=== PATIENT | female | born 1945 | race Caucasian/White ===

== ENCOUNTER 2018-02-23 07:01 | Day surgery (SDC) | payer OTHER ==
[~2018-02-23] VITALS: Ht 149.9 cm; Wt 76.0 kg
[~2018-02-23 07:01] MED LIST: BACL10 PO; LISI20; LOVA40
[2018-02-23] MEDS ORDERED: FISH OIL 1,0001 EAC2 (07:40)
[2018-02-23] MEDS ORDERED: Multivitamin1 EAC1 (07:41)
== END 2018-02-23 09:32 | disposition home or self-care (01) ==
LOC: ORSCSDS 07:01
PROVIDERS: Internal Medicine Gastroenterology
PROC: 0DBL8ZX Excision of Transverse Colon, Via Natural or Artificial Opening Endoscopic, Diagnostic (ICD-10-PCS; principal; 2018-02-23 08:30)
PROC: 0DBN8ZX Excision of Sigmoid Colon, Via Natural or Artificial Opening Endoscopic, Diagnostic (ICD-10-PCS; principal; 2018-02-23 08:30)
DX: Z12.11 Encounter for screening for malignant neoplasm of colon (principal); D12.3 Benign neoplasm of transverse colon; K63.5 Polyp of colon; K57.30 Diverticulosis of large intestine without perforation or abscess without bleeding; K64.8 Other hemorrhoids; E78.5 Hyperlipidemia, unspecified; J43.9 Emphysema, unspecified; Z87.891 Personal history of nicotine dependence; E66.9 Obesity, unspecified; Z68.31 Body mass index [BMI] 31.0-31.9, adult; Z79.82 Long term (current) use of aspirin; Z79.899 Other long term (current) drug therapy
CPT/HCPCS: 88305; J0330; J1980; J2405; J7120

== ENCOUNTER → 2021-01-17 | Outpatient (CLI) | payer OTHER ==
[~2021-01-17] MED LIST changes: +FISH OIL 1,0001 EAC2; +HYDR1TAB94 PO; +Multivitamin1 EAC1
== END | disposition home or self-care (01) ==
LOC: LAB SHORT 10:10
DX: M54.5 Low back pain (principal)
CPT/HCPCS: 87077; 87086; 87186

== ENCOUNTER 2021-01-21 14:20 | Emergency (ER) | payer OTHER ==
[~2021-01-21] VITALS: Ht 152.4 cm; Wt 72.6 kg
[~2021-01-21 14:20] MED LIST changes: -HYDR1TAB94 PO
[2021-01-21 14:56] LABS: BASOPHILS ABSOLUTE AUTO 0.07 K/mm3 (0.00-0.23); BASOPHILS PERCENT AUTO 1 % (0-2); EOSINOPHILS ABSOLUTE AUTO 0.32 K/mm3 (0.00-0.68); EOSINOPHILS PERCENT AUTO 4 % (0-6); Hematocrit 40.5 % (33.0-51.0); Hemoglobin 13.2 g/dL (11.5-16.0); IMMATURE GRAN ABSOLUTE AUTO 0.02 K/mm3 (0.00-0.10); IMMATURE GRAN PERCENT AUTO 0 % (0-1); LYMPHOCYTES ABSOLUTE AUTO 1.45 K/mm3 (0.84-5.20); LYMPHOCYTES PERCENT AUTO 19 % (21-46); MONOCYTES ABSOLUTE AUTO 0.64 K/mm3 (0.16-1.47); MONOCYTES PERCENT AUTO 9 % (4-13); Mean Corpuscular HGB 30.3 pg (26.0-34.0); Mean Corpuscular HGB Conc 32.6 g/dL (31.5-36.5); Mean Corpuscular Volume 93 fL (80-100); Mean Platelet Volume 11.9 fL (9.1-12.4); NEUTROPHILS ABSOLUTE AUTO 5.02 K/mm3 (1.96-9.15); NEUTROPHILS PERCENT AUTO 67 % (41-73); Platelet Count 230 K/mm3 (150-400); RDW Coefficient Variation 12.8 % (11.7-14.2); RDW Standard Deviation 43.8 fL (35.1-46.3); Red Blood Cell Count 4.36 M/mm3 (3.80-5.20); White Blood Cell Count 7.52 K/mm3 (4.00-11.30)
[2021-01-21 14:59] LABS: Source, Urine Clean Catch
[2021-01-21 15:10] LABS: Albumin, Blood 3.8 g/dL (3.4-5.0); Albumin/Globulin Ratio 1.1 (0.8-1.8); Bilirubin, Total 0.2 mg/dL (0.1-1.0); Bun/Creatinine Ratio 12.9 (12.0-20.0); Creatinine, Blood 1.16 mg/dL (0.40-1.00); Globulin, Blood 3.6 g/dL (2.2-4.0); Potassium, Blood 4.2 mmol/L (3.5-5.5); Total Protein, Blood 7.4 g/dL (6.4-8.2)
[2021-01-21 15:16] LABS: Appearance, Urine Clear (Clear); Bilirubin, Urine Neg (Neg); Blood, Urine 1+ (Neg); Color, Urine Yellow (P-Yellow); Glucose Qualitative, Urine Neg (Neg); Ketones, Urine Neg (Neg); Leukocyte Esterase, Urine 1+ (Neg); Nitrite, Urine Neg (Neg); Protein, Urine Neg (Neg); Urobilinogen, Urine NORM (Normal)
[2021-01-21 15:38] LABS: Bacteria Few /hpf; Squamous Epithelial Cells Few /hpf (Few)
[2021-01-21] MEDS ORDERED: HYDR1TAB94 PO (16:15)
== END 2021-01-21 16:30 | disposition home or self-care (01) ==
LOC: ER 14:20
PROVIDERS: Physician Assistant
DX: R10.9 Unspecified abdominal pain (principal); Z88.8 Allergy status to other drugs, medicaments and biological substances; Z79.899 Other long term (current) drug therapy; Z87.891 Personal history of nicotine dependence
CPT/HCPCS: 36415; 74176; 80053; 81001; 83690; 85025; 87086; 99284-25

== ENCOUNTER → 2021-01-22 | Outpatient (CLI) | payer OTHER ==
[~2021-01-22] MED LIST changes: +HYDR1TAB94 PO
[2021-01-22 12:20] LABS: BASOPHILS ABSOLUTE AUTO 0.05 K/mm3 (0.00-0.23); BASOPHILS PERCENT AUTO 0 % (0-2); EOSINOPHILS ABSOLUTE AUTO 0.09 K/mm3 (0.00-0.68); EOSINOPHILS PERCENT AUTO 1 % (0-6); Hematocrit 41.6 % (33.0-51.0); Hemoglobin 13.6 g/dL (11.5-16.0); IMMATURE GRAN ABSOLUTE AUTO 0.06 K/mm3 (0.00-0.10); IMMATURE GRAN PERCENT AUTO 0 % (0-1); LYMPHOCYTES ABSOLUTE AUTO 1.21 K/mm3 (0.84-5.20); LYMPHOCYTES PERCENT AUTO 8 % (21-46); MONOCYTES ABSOLUTE AUTO 0.74 K/mm3 (0.16-1.47); MONOCYTES PERCENT AUTO 5 % (4-13); Mean Corpuscular HGB 30.5 pg (26.0-34.0); Mean Corpuscular HGB Conc 32.7 g/dL (31.5-36.5); Mean Corpuscular Volume 93 fL (80-100); Mean Platelet Volume 11.9 fL (9.1-12.4); NEUTROPHILS ABSOLUTE AUTO 12.37 K/mm3 (1.96-9.15); NEUTROPHILS PERCENT AUTO 85 % (41-73); Platelet Count 243 K/mm3 (150-400); RDW Coefficient Variation 13.1 % (11.7-14.2); RDW Standard Deviation 44.4 fL (35.1-46.3); Red Blood Cell Count 4.46 M/mm3 (3.80-5.20); White Blood Cell Count 14.52 K/mm3 (4.00-11.30)
[2021-01-22 12:33] LABS: Albumin, Blood 3.8 g/dL (3.4-5.0); Bilirubin, Total 0.4 mg/dL (0.1-1.0); Bun/Creatinine Ratio 12.9 (12.0-20.0); Calcium, Blood 9.8 mg/dL (8.5-10.1); Creatinine, Blood 1.47 mg/dL (0.40-1.00); Globulin, Blood 3.7 g/dL (2.2-4.0); Potassium, Blood 4.2 mmol/L (3.5-5.5); Total Protein, Blood 7.5 g/dL (6.4-8.2)
== END | disposition home or self-care (01) ==
LOC: LAB SHORT 12:13 → LAB 12:13
PROVIDERS: Physician Assistant
DX: R10.84 Generalized abdominal pain (principal)
CPT/HCPCS: 80053; 83690; 85025

== ENCOUNTER 2022-01-08 17:15 | Emergency (ER) | payer OTHER ==
[~2022-01-08] VITALS: Ht 149.9 cm; Wt 68.0 kg
[~2022-01-08 17:15] MED LIST changes: -FISH OIL 1,0001 EAC2; +FISH OIL 1,2001 EAC7 PO; -LISI20; +LISI20 PO; +MULVITA PO; -Multivitamin1 EAC1
[2022-01-08 17:52] LABS: BASOPHILS ABSOLUTE AUTO 0.07 K/mm3 (0.00-0.23); BASOPHILS PERCENT AUTO 1 % (0-2); EOSINOPHILS ABSOLUTE AUTO 0.27 K/mm3 (0.00-0.68); EOSINOPHILS PERCENT AUTO 4 % (0-6); Hematocrit 43.7 % (33.0-51.0); Hemoglobin 13.7 g/dL (11.5-16.0); IMMATURE GRAN ABSOLUTE AUTO 0.01 K/mm3 (0.00-0.10); IMMATURE GRAN PERCENT AUTO 0 % (0-1); LYMPHOCYTES ABSOLUTE AUTO 1.83 K/mm3 (0.84-5.20); LYMPHOCYTES PERCENT AUTO 28 % (21-46); MONOCYTES ABSOLUTE AUTO 0.41 K/mm3 (0.16-1.47); MONOCYTES PERCENT AUTO 6 % (4-13); Mean Corpuscular HGB 29.7 pg (26.0-34.0); Mean Corpuscular HGB Conc 31.4 g/dL (31.5-36.5); Mean Corpuscular Volume 95 fL (80-100); Mean Platelet Volume 11.7 fL (9.1-12.4); NEUTROPHILS ABSOLUTE AUTO 4.03 K/mm3 (1.96-9.15); NEUTROPHILS PERCENT AUTO 61 % (41-73); Platelet Count 189 K/mm3 (150-400); RDW Coefficient Variation 13.1 % (11.7-14.2); RDW Standard Deviation 44.9 fL (35.1-46.3); Red Blood Cell Count 4.62 M/mm3 (3.80-5.20); White Blood Cell Count 6.62 K/mm3 (4.00-11.30)
[2022-01-08 18:29] LABS: Alanine Aminotransfer (ALT/SGP 23 U/L (12-78); Albumin, Blood 3.7 g/dL (3.4-5.0); Albumin/Globulin Ratio 1.1 (0.8-1.8); Alk Phos 107 U/L (50-136); Anion Gap 1 mmol/L (6-16); Aspartate Aminotrans (AST/SGOT 17 U/L (12-37); Bilirubin, Total 0.2 mg/dL (0.1-1.0); Blood Urea Nitrogen 13 mg/dL (8-24); Bun/Creatinine Ratio 18.5 (12.0-20.0); CO2, Blood 31 mmol/L (21-32); Calcium, Blood 9.3 mg/dL (8.5-10.1); Chloride, Blood 110 mmol/L (98-108); Globulin, Blood 3.4 g/dL (2.2-4.0); Glomerular Filtration Rate >60 (60-); Glucose, Blood 123 mg/dL (70-99); Potassium, Blood 3.9 mmol/L (3.5-5.5); Sodium, Blood 142 mmol/L (136-145); Total Protein, Blood 7.1 g/dL (6.4-8.2)
[2022-01-08] MEDS ORDERED: Vitamin D1000 UNI1 PO (19:55)
[2022-01-08] MEDS ORDERED: B-12500 MC2 PO (19:55)
[2022-01-08] MEDS ORDERED: Aspir 8181 MG PO (19:56)
[2022-01-08] MEDS ORDERED: AMOX-CLAV 875-1 EAC2 PO (21:26)
== END 2022-01-08 21:43 | disposition home or self-care (01) ==
LOC: ER 17:15
PROVIDERS: Physician Assistant
DX: K11.21 Acute sialoadenitis (principal); R91.8 Other nonspecific abnormal finding of lung field; L04.9 Acute lymphadenitis, unspecified; Z88.8 Allergy status to other drugs, medicaments and biological substances; Z79.82 Long term (current) use of aspirin; Z79.899 Other long term (current) drug therapy; Z87.891 Personal history of nicotine dependence
CPT/HCPCS: 36415; 70491; 80053; 85025; 99284-25; A9270; Q9967

== ENCOUNTER 2023-03-17 15:39 | Emergency (ER) | payer MEDICARE ==
[~2023-03-17] VITALS: Ht 144.8 cm; Wt 67.1 kg
[~2023-03-17 15:39] MED LIST changes: +AMOX-CLAV 875-1 EAC2 PO; +Aspir 8181 MG PO; +B-12500 MC2 PO; +Vitamin D1000 UNI1 PO
[2023-03-17 15:43] VITALS: BP 162/100
[2023-03-17] MEDS ORDERED: PRED20 PO (16:54)
== END 2023-03-17 16:56 | disposition home or self-care (01) ==
LOC: ER 15:39
DX: J70.0 Acute pulmonary manifestations due to radiation (principal); C34.90 Malignant neoplasm of unspecified part of unspecified bronchus or lung; Y84.2 Radiological procedure and radiotherapy as the cause of abnormal reaction of the patient, or of later complication, without mention of misadventure at the time of the procedure; Z87.891 Personal history of nicotine dependence; Z88.8 Allergy status to other drugs, medicaments and biological substances; Z79.899 Other long term (current) drug therapy
CPT/HCPCS: 71046; J1100

== ENCOUNTER → 2023-09-12 | Outpatient (CLI) | payer MEDICARE ==
[~2023-09-12] MED LIST changes: +PRED20 PO
== END ==
LOC: LAB 12:58 → LAB SHORT 12:58
DX: R35.0 Frequency of micturition (principal)
CPT/HCPCS: 87077; 87086; 87186

== ENCOUNTER 2023-11-11 07:31 | Emergency (ER) | payer MEDICARE ==
[~2023-11-11] VITALS: Ht 147.3 cm; Wt 61.2 kg
[2023-11-11] MEDS ORDERED: Acetaminophen 325 MG TABLET PO ONE (08:35)
[2023-11-11 08:57] LABS: BASOPHILS ABSOLUTE AUTO 0.05 K/mm3 (0.00-0.23); BASOPHILS PERCENT AUTO 1 % (0-2); EOSINOPHILS ABSOLUTE AUTO 0.19 K/mm3 (0.00-0.68); EOSINOPHILS PERCENT AUTO 3 % (0-6); Hematocrit 36.5 % (33.0-51.0); Hemoglobin 11.9 g/dL (11.5-16.0); IMMATURE GRAN ABSOLUTE AUTO 0.01 K/mm3 (0.00-0.10); IMMATURE GRAN PERCENT AUTO 0 % (0-1); LYMPHOCYTES ABSOLUTE AUTO 0.92 K/mm3 (0.84-5.20); LYMPHOCYTES PERCENT AUTO 16 % (21-46); MONOCYTES PERCENT AUTO 9 % (4-13); Mean Corpuscular HGB 30.9 pg (26.0-34.0); Mean Corpuscular HGB Conc 32.6 g/dL (31.5-36.5); Mean Corpuscular Volume 95 fL (80-100); NEUTROPHILS ABSOLUTE AUTO 4.13 K/mm3 (1.96-9.15); NEUTROPHILS PERCENT AUTO 71 % (41-73); Platelet Count 189 K/mm3 (150-400); RDW Coefficient Variation 12.9 % (11.7-14.2); Red Blood Cell Count 3.85 M/mm3 (3.80-5.20)
[2023-11-11 09:21] LABS: Albumin, Blood 3.6 g/dL (3.4-5.0); Bilirubin, Total 0.3 mg/dL (0.1-1.0); Calcium, Blood 9.3 mg/dL (8.5-10.1); Creatinine, Blood 1.08 mg/dL (0.40-1.00); Globulin, Blood 3.6 g/dL (2.2-4.0); Potassium, Blood 4.6 mmol/L (3.5-5.5); Total Protein, Blood 7.2 g/dL (6.4-8.2)
[2023-11-11 11:29] VITALS: BP 114/63
== END 2023-11-11 11:31 | disposition home or self-care (01) ==
LOC: ER 07:31
PROVIDERS: Emergency Medicine
DX: R07.9 Chest pain, unspecified (principal); M79.602 Pain in left arm; Z88.8 Allergy status to other drugs, medicaments and biological substances; Z79.899 Other long term (current) drug therapy; Z79.82 Long term (current) use of aspirin; Z87.891 Personal history of nicotine dependence
CPT/HCPCS: 71046; 80053; 83690; 84484; 85025; 93005; 93010; 99285-25; A9270

== ENCOUNTER 2024-02-14 15:55 | Emergency (ER) | payer MEDICARE ==
[~2024-02-14] VITALS: Ht 142.2 cm; Wt 64.0 kg
[2024-02-14 16:09] VITALS: BP 164/74
== END 2024-02-14 17:14 | disposition home or self-care (01) ==
LOC: ER 15:55
DX: G56.03 Carpal tunnel syndrome, bilateral upper limbs (principal); Z79.899 Other long term (current) drug therapy; Z79.82 Long term (current) use of aspirin; Z79.52 Long term (current) use of systemic steroids
CPT/HCPCS: 73130

== ENCOUNTER 2024-10-26 17:57 | Emergency (ER) | payer MEDICARE ==
[~2024-10-26] VITALS: Ht 154.9 cm; Wt 65.8 kg
[2024-10-26 18:30] VITALS: BP 99/55
[2024-10-26] MEDS ORDERED: Lidocaine 4% 1 Patch TOP ONE (20:30)
[2024-10-26] MEDS ORDERED: RX Prepack 6 Tabs Oxycodone 5mg UD ONE (20:30)
[2024-10-26] MEDS ORDERED: Diphth,Pertuss(Acell),Tet Vac 0.5 ML VIAL IM ONE (20:30)
[2024-10-26] MEDS ORDERED: ASPERFLEX1 EACH TOP (20:36)
== END 2024-10-26 20:53 | disposition home or self-care (01) ==
LOC: ER 17:57
DX: M25.522 Pain in left elbow (principal); M25.512 Pain in left shoulder; R07.81 Pleurodynia; Z88.8 Allergy status to other drugs, medicaments and biological substances; Z79.82 Long term (current) use of aspirin; Z79.899 Other long term (current) drug therapy
CPT/HCPCS: 71045; 73030; 73080; 90471; 90715; 99284-25; A9270

== ENCOUNTER 2024-12-15 23:54 | Inpatient (IN) | payer MEDICARE ==
[~2024-12-15] VITALS: Ht 160 cm; Wt 68.0 kg
[~2024-12-15 23:54] MED LIST changes: +ASPERFLEX1 EACH TOP; +ONDA4ODT MM
[2024-12-16] MEDS ORDERED: OxyCODONE HCL 5 MG TAB PO ONE (01:00)
[2024-12-16] MEDS ORDERED: Ondansetron HCl 2 MG / ML 2ML Vial IV PRN (01:45)
[2024-12-16] MEDS ORDERED: OxyCODONE HCL 5 MG TAB PO PRN (01:45)
[2024-12-16] MEDS ORDERED: Acetaminophen 325 MG TABLET PO PRN (01:50)
[2024-12-16] MEDS ORDERED: Naloxone HCl 0.4MG / ML 1ML Vial IV PRN (01:50)
[2024-12-16] MEDS ORDERED: FentaNYL Citrate 50 MCG/ML 2 ML Injection IV PRN ×2 (01:50→18:00)
[2024-12-16] MEDS ORDERED: FLU VACC TS2024-25(6MOS UP)/PF 45 MCG/0.5 ML SYRINGE IM ONE (01:50)
[2024-12-16] MEDS ORDERED: Lactated Ringer's 1,000 ML IV SCH (02:00)
[2024-12-16 02:31] LABS: Albumin, Blood 3.6 g/dL (3.4-5.0); Albumin/Globulin Ratio 1.1 (0.8-1.8); Bilirubin, Total 0.4 mg/dL (0.1-1.0); Bun/Creatinine Ratio 24.2 (12.0-20.0); Calcium, Blood 9.4 mg/dL (8.5-10.1); Creatinine, Blood 0.95 mg/dL (0.40-1.00); Globulin, Blood 3.2 g/dL (2.2-4.0); Potassium, Blood 4.3 mmol/L (3.5-5.5); Total Protein, Blood 6.8 g/dL (6.4-8.2)
[2024-12-16 02:33] LABS: BASOPHILS ABSOLUTE AUTO 0.05 K/mm3 (0.00-0.23); BASOPHILS PERCENT AUTO 0 % (0-2); EOSINOPHILS ABSOLUTE AUTO 0.03 K/mm3 (0.00-0.68); EOSINOPHILS PERCENT AUTO 0 % (0-6); Hematocrit 32.1 % (33.0-51.0); Hemoglobin 10.8 g/dL (11.5-16.0); IMMATURE GRAN ABSOLUTE AUTO 0.08 K/mm3 (0.00-0.10); IMMATURE GRAN PERCENT AUTO 1 % (0-1); LYMPHOCYTES ABSOLUTE AUTO 0.77 K/mm3 (0.84-5.20); LYMPHOCYTES PERCENT AUTO 6 % (21-46); MONOCYTES ABSOLUTE AUTO 0.33 K/mm3 (0.16-1.47); MONOCYTES PERCENT AUTO 3 % (4-13); Mean Corpuscular HGB Conc 33.6 g/dL (31.5-36.5); Mean Corpuscular Volume 92 fL (80-100); Mean Platelet Volume 10.8 fL (9.1-12.4); NEUTROPHILS ABSOLUTE AUTO 11.81 K/mm3 (1.96-9.15); NEUTROPHILS PERCENT AUTO 90 % (41-73); Platelet Count 198 K/mm3 (150-400); RDW Coefficient Variation 13.6 % (11.7-14.2); Red Blood Cell Count 3.48 M/mm3 (3.80-5.20); White Blood Cell Count 13.07 K/mm3 (4.00-11.30)
[2024-12-16 02:38] LABS: International Normalized Ratio 1.02; Prothrombin Time Results 10.9 Sec (9.7-11.5)
[2024-12-16 05:00] LABS: BASOPHILS ABSOLUTE AUTO 0.05 K/mm3 (0.00-0.23); BASOPHILS PERCENT AUTO 0 % (0-2); EOSINOPHILS ABSOLUTE AUTO 0.02 K/mm3 (0.00-0.68); EOSINOPHILS PERCENT AUTO 0 % (0-6); Hematocrit 32.5 % (33.0-51.0); Hemoglobin 10.8 g/dL (11.5-16.0); IMMATURE GRAN ABSOLUTE AUTO 0.05 K/mm3 (0.00-0.10); IMMATURE GRAN PERCENT AUTO 0 % (0-1); LYMPHOCYTES ABSOLUTE AUTO 0.52 K/mm3 (0.84-5.20); LYMPHOCYTES PERCENT AUTO 4 % (21-46); MONOCYTES PERCENT AUTO 3 % (4-13); Mean Corpuscular HGB Conc 33.2 g/dL (31.5-36.5); Mean Corpuscular Volume 93 fL (80-100); NEUTROPHILS ABSOLUTE AUTO 11.87 K/mm3 (1.96-9.15); NEUTROPHILS PERCENT AUTO 92 % (41-73); Platelet Count 189 K/mm3 (150-400); RDW Coefficient Variation 13.7 % (11.7-14.2); Red Blood Cell Count 3.48 M/mm3 (3.80-5.20); White Blood Cell Count 12.91 K/mm3 (4.00-11.30)
[2024-12-16 05:36] LABS: Albumin, Blood 3.4 g/dL (3.4-5.0); Albumin/Globulin Ratio 1.1 (0.8-1.8); Bilirubin, Total 0.4 mg/dL (0.1-1.0); Bun/Creatinine Ratio 25.1 (12.0-20.0); Calcium, Blood 9.1 mg/dL (8.5-10.1); Creatinine, Blood 0.88 mg/dL (0.40-1.00); Globulin, Blood 3.1 g/dL (2.2-4.0); Magnesium, Blood 1.8 mg/dL (1.6-2.4); Potassium, Blood 4.2 mmol/L (3.5-5.5); Total Protein, Blood 6.5 g/dL (6.4-8.2)
[2024-12-16 07:45] VITALS: BP 144/78
[2024-12-16] MEDS ORDERED: Docusate Sodium 100 MG Cap PO SCH (09:00)
[2024-12-16] MEDS ORDERED: MOTRIN IB200 MG PO (09:34)
[2024-12-16] MEDS ORDERED: Lovastatin20 MG PO (09:35)
[2024-12-16] MEDS ORDERED: ALEN70 PO (09:35)
[2024-12-16] MEDS ORDERED: FLUT1DIS5 INH (09:36)
[2024-12-16] MEDS ORDERED: MEMA10 PO ×2 (09:37)
[2024-12-16 15:30] VITALS: BP 131/71
[2024-12-16] MEDS ORDERED: Mometasone/Formoterol MDI 200/5 mcg 13 GM INH SCH (16:10)
--- NOTE | 2024-12-16 16:27 | NUR ---
Lisa (pt) is awake and appears drowsy and/or disoriented. She is joined at bedside by her son saul. Pt has experienced a hip fracture resulting from a fall. Pt and her son are waiting to hear about next steps from surgeon. Pt and son appear distressed. Provided compassionate listening and normalized pt experience. Pt and son expressed emotional relief in the form of laughter. Pt and son do not report any kind of spiritual connection. Pt's son describes coping mechanisms as connection with family. Pt and son appeared more at ease following visit.
[2024-12-16] MEDS ORDERED: FentaNYL Citrate 50 MCG/ML 2 ML Injection IV ONE (18:00)
--- NOTE | 2024-12-16 18:38 | NUR ---
ASSUSMED CARE OF ADMIT THIS AM PT IS A/O X 1 IN A LOT OF PAIN, NOT ABLE TO EXPRESS ACTUAL FEELING DUE TO MENTATION BUT OBIOUSLY GRIMICING, PT COVERED PER DEC. SON AT BEDSIDE TO ASSIST WITH ADMISSION PROCESS, AWAINTIGN MD CONSULTAION. PT REPOSITIONED NEEDED, PURWIC IN PLACE WITH MINIMAL OUTPUT.
[2024-12-16 19:29] VITALS: BP 151/73
[2024-12-16] MEDS ORDERED: Atorvastatin 10 MG Tab PO SCH (21:00)
[2024-12-17] VITALS (24 sets, daily range): BP systolic 108–153; BP diastolic 54–92
--- NOTE | 2024-12-17 05:50 | NUR ---
SHIFT SUMMARY NOC PT A/O X SELF. CONFUSED AND CAN NOT FOLLOW DIRECTIONS. PT GIVEN OXYCODONE FOR PAIN AND DESPITE CUES, CHEWED PILL INSTEAD OF SWALLOWING IT, SO PAIN BEING MANAGED WITH IV FENTANYL. PT HAS BEEN NPO FOR POSSIBLE SURGICAL INTERVENTION FOR L HIP FX. PT STILL WAITING FOR ORTHOPEDIC MD CONSULTATION. LR INFUSING @ 75 ML/HR. PUREWICK IN PLACE FOR IMMOBILITY. O2 1L/NC FOR COMFORT. PT CURRENTLY RESTING WITH BED ALARM ON, BED IN LOWEST POSITION, AND CALL LIGHT WITHIN REACH.
[2024-12-17 06:29] LABS: BASOPHILS ABSOLUTE AUTO 0.04 K/mm3 (0.00-0.23); BASOPHILS PERCENT AUTO 0 % (0-2); EOSINOPHILS ABSOLUTE AUTO 0.07 K/mm3 (0.00-0.68); EOSINOPHILS PERCENT AUTO 1 % (0-6); Hematocrit 32.5 % (33.0-51.0); Hemoglobin 10.5 g/dL (11.5-16.0); IMMATURE GRAN ABSOLUTE AUTO 0.03 K/mm3 (0.00-0.10); IMMATURE GRAN PERCENT AUTO 0 % (0-1); LYMPHOCYTES PERCENT AUTO 7 % (21-46); MONOCYTES ABSOLUTE AUTO 0.54 K/mm3 (0.16-1.47); MONOCYTES PERCENT AUTO 6 % (4-13); Mean Corpuscular HGB 30.8 pg (26.0-34.0); Mean Corpuscular HGB Conc 32.3 g/dL (31.5-36.5); Mean Corpuscular Volume 95 fL (80-100); Mean Platelet Volume 11.1 fL (9.1-12.4); NEUTROPHILS ABSOLUTE AUTO 7.78 K/mm3 (1.96-9.15); NEUTROPHILS PERCENT AUTO 86 % (41-73); Platelet Count 167 K/mm3 (150-400); RDW Coefficient Variation 13.6 % (11.7-14.2); RDW Standard Deviation 47.1 fL (35.1-46.3); Red Blood Cell Count 3.41 M/mm3 (3.80-5.20); White Blood Cell Count 9.06 K/mm3 (4.00-11.30)
[2024-12-17 06:53] LABS: Bun/Creatinine Ratio 22.4 (12.0-20.0); Calcium, Blood 8.8 mg/dL (8.5-10.1); Creatinine, Blood 0.72 mg/dL (0.40-1.00); Potassium, Blood 3.8 mmol/L (3.5-5.5)
[2024-12-17] MEDS ORDERED: Memantine HCL 5 MG Tab PO SCH (09:00)
[2024-12-17] MEDS ORDERED: Lisinopril 20 MG Tab PO SCH (09:00)
[2024-12-17] MEDS ORDERED: Lactated Ringer's 1,000 ML IV SCH (09:20)
--- NOTE | 2024-12-17 10:08 | NUR ---
PT INTO SDS VIA BED. PT IS GROGGY BUT DOES OPEN EYES TO VOICE. PT WAS ON 1L/MIN 02 VIA NC IN ROOM. HERE ON RA. SA02=86%. 02 TURNED ON TO 3L/MIN VIA NC. PT ENCOURAGE TO DEEP BREATH BUT ONLY TOOK ONE DEEP BREATH BEFORE SHUTTING HER EYES. SA02=94% NOW. PT'S SON, YUE, WHO IS HER POA IS ENROUTE TO HOSPITAL
[2024-12-17] MEDS ORDERED: Dexamethasone Sod Phos 10 MG/ML 1ML VIAL ONE (10:13)
[2024-12-17] MEDS ORDERED: Sugammadex Sodium 200 MG/2ML SDV (100 MG/ML) ONE (10:13)
[2024-12-17] MEDS ORDERED: propofoL 20 ML IV ONE (10:13)
[2024-12-17] MEDS ORDERED: Ondansetron HCl 2 MG / ML 2ML Vial ONE (10:13)
[2024-12-17] MEDS ORDERED: FentaNYL Citrate 50 MCG/ML 5 ML Injection ONE (10:13)
[2024-12-17] MEDS ORDERED: Rocuronium Bromide 10 MG/ML 5ML Injection IV ONE (10:13)
[2024-12-17] MEDS ORDERED: Ketorolac Tromethamine 30mg Vial ONE (10:14)
[2024-12-17] MEDS ORDERED: Bupivacaine 0.5% HCl 5 MG/ML 30MLVIAL ONE (10:28)
[2024-12-17] MEDS ORDERED: CeFAZolin Sodium 2,000 MG in NS 100 ML IV SCH (10:30)
[2024-12-17] MEDS ORDERED: Bupivacaine 0.25% Epi 1:200000 30 ML Vial ONE (10:34)
[2024-12-17] MEDS ORDERED: CeFAZolin Sodium 2,000 MG VIAL ONE (10:39)
[2024-12-17] MEDS ORDERED: Albuterol 2.5 MG/3 ML VIAL ONE (13:01)
--- NOTE | 2024-12-17 14:16 | NUR ---
POST-OP PATIENT TO ROOM @1330 ON 4L NC, SATS 95-97%, LUNG SOUNDS ARE COURSE WITH CRACKLES, IV FLUIDS ARE NOT RUNNING, DR COLE IN TO ASSESS. PATIENT IS ALERT TO SELF, IS CONFUSED TO THE SITUATION AND PLACE. PURE WICK AND CLEAN ATTENDS IN PLACE, BED ALARM IS ON AND IN LOW POSTION. CALL LIGHT IS IN REACH AND VITALS ARE STABLE.
[2024-12-17] MEDS ORDERED: Albuterol 2.5 MG/3 ML VIAL INH PRN (16:50)
--- NOTE | 2024-12-17 18:22 | NUR ---
SHIFT SUMMARY POD0 LEFT HIP FXMANSI IS C/D/I. HX OF DEMENTIA AND IS SLIGHTLY CONFUSED. BED ALARM IS ON FOR SAFETY. VSS, ON 4L NC. ASSIST WITH FEEDING. FAMILY IN TO VISIT. PATIENT IS RESTING AT THIS TIME. PUREWICK IS IN PLACE, ATTENDS ARE ON.
[2024-12-18 03:38] VITALS: BP 104/61
--- NOTE | 2024-12-18 05:27 | NUR ---
SHIFT SUMMARY PT HAS RESTED OFF AND ON T/O THE NIGHT. CONFUSED, A/O TO SELF ONLY. INTERMITTENTLY ATTEMPTS TO GET OOB SETTING OFF BED ALARM. SURGICAL SITE WNL, DRESSING C/D/I. PT DOES NOT FOLLOW DIRECTION WELL, 3 PEOPLE REQUIRED TO GET HER TO A BEDSIDE COMMODE. PUREWICK WAS IN PLACE, BUT UNABLE TO USE DUE TO CONFUSION. PT WAS ABLE TO VOID THIS SHIFT ONCE ON THE BEDSIDE COMMODE. PAIN MANAGED WITH MEDS PER EMAR. BED ALARM IN PLACE. VITALS STABLE. BED IN LOWEST POSITION, CALL LIGHT WITHIN REACH.
[2024-12-18 05:42] LABS: BASOPHILS ABSOLUTE AUTO 0.02 K/mm3 (0.00-0.23); BASOPHILS PERCENT AUTO 0 % (0-2); EOSINOPHILS ABSOLUTE AUTO 0.02 K/mm3 (0.00-0.68); EOSINOPHILS PERCENT AUTO 0 % (0-6); Hematocrit 28.2 % (33.0-51.0); Hemoglobin 9.1 g/dL (11.5-16.0); IMMATURE GRAN ABSOLUTE AUTO 0.06 K/mm3 (0.00-0.10); IMMATURE GRAN PERCENT AUTO 1 % (0-1); LYMPHOCYTES ABSOLUTE AUTO 0.85 K/mm3 (0.84-5.20); LYMPHOCYTES PERCENT AUTO 7 % (21-46); MONOCYTES ABSOLUTE AUTO 0.89 K/mm3 (0.16-1.47); MONOCYTES PERCENT AUTO 7 % (4-13); Mean Corpuscular HGB 31.1 pg (26.0-34.0); Mean Corpuscular HGB Conc 32.3 g/dL (31.5-36.5); Mean Corpuscular Volume 96 fL (80-100); Mean Platelet Volume 11.5 fL (9.1-12.4); NEUTROPHILS ABSOLUTE AUTO 10.72 K/mm3 (1.96-9.15); NEUTROPHILS PERCENT AUTO 85 % (41-73); Platelet Count 160 K/mm3 (150-400); RDW Coefficient Variation 13.6 % (11.7-14.2); RDW Standard Deviation 47.6 fL (35.1-46.3); Red Blood Cell Count 2.93 M/mm3 (3.80-5.20); White Blood Cell Count 12.56 K/mm3 (4.00-11.30)
[2024-12-18 06:16] LABS: Bun/Creatinine Ratio 23.5 (12.0-20.0); Calcium, Blood 8.7 mg/dL (8.5-10.1); Creatinine, Blood 1.02 mg/dL (0.40-1.00); Potassium, Blood 4.2 mmol/L (3.5-5.5)
[2024-12-18 07:12] VITALS: BP 99/50
[2024-12-18 10:28] VITALS: BP 106/53
--- NOTE | 2024-12-18 10:55 | NUR ---
BP THIS AM 99/50, RECHECK 106/53. BP ABOVE THRESHOLD FOR LISINOPRIL SO LISINOPRIL WAS GIVEN THIS AM AND DR. COLE NOTIFIED.
[2024-12-18] MEDS ORDERED: TraMADol HCl 50 MG Tab PO PRN (13:35)
[2024-12-18] MEDS ORDERED: Enoxaparin 40 MG/0.4 ML SYR SC SCH (14:00)
[2024-12-18 14:26] VITALS: BP 105/53
--- NOTE | 2024-12-18 17:03 | NUR ---
SHIFT SUMMARY PT IS POD3 FOR L HIP NAILING. PT IS A/O TO SELF AND FAMILY, HAS A DIFFICULT TIME FOLLOWING COMMANDS. 2 MAX ASST W/ FWW AND GB TO STAND PIVOT TO CHAIR/BSC. PT UNABLE TO UNDERSTAND PURWICK SO WILL ONLY VOID ON BSC. PT VOIDED MULTIPLE TIMES IN BSC TODAY PLUS [employer] VOID IN ATTENDS. ENCOURAGED PO FLUIDS. DRESSING TO L HIP C/D/I, CAP REFILL 2 SECS IN L TOES, PT ABLE TO WIGGLE TOES. PAIN MANAGED W/ PO TYLENOL PER EMAR. 3LNC IN PLACE W/ O2 SATS >92%. VSS. PT CURRENTLY RESTING IN BED W/ CALL LIGHT IN REACH, BED ALARM ON.
[2024-12-18 20:05] VITALS: BP 96/56
[2024-12-19] VITALS (7 sets, daily range): BP systolic 100–131; BP diastolic 52–70
[2024-12-19 05:53] LABS: BASOPHILS ABSOLUTE AUTO 0.05 K/mm3 (0.00-0.23); BASOPHILS PERCENT AUTO 1 % (0-2); EOSINOPHILS ABSOLUTE AUTO 0.41 K/mm3 (0.00-0.68); EOSINOPHILS PERCENT AUTO 4 % (0-6); Hemoglobin 9.4 g/dL (11.5-16.0); IMMATURE GRAN ABSOLUTE AUTO 0.03 K/mm3 (0.00-0.10); IMMATURE GRAN PERCENT AUTO 0 % (0-1); LYMPHOCYTES ABSOLUTE AUTO 0.95 K/mm3 (0.84-5.20); LYMPHOCYTES PERCENT AUTO 10 % (21-46); MONOCYTES ABSOLUTE AUTO 0.76 K/mm3 (0.16-1.47); MONOCYTES PERCENT AUTO 8 % (4-13); Mean Corpuscular HGB Conc 31.3 g/dL (31.5-36.5); Mean Corpuscular Volume 99 fL (80-100); NEUTROPHILS ABSOLUTE AUTO 7.85 K/mm3 (1.96-9.15); NEUTROPHILS PERCENT AUTO 78 % (41-73); Platelet Count 154 K/mm3 (150-400); Red Blood Cell Count 3.03 M/mm3 (3.80-5.20); White Blood Cell Count 10.05 K/mm3 (4.00-11.30)
--- NOTE | 2024-12-19 06:09 | NUR ---
SHIFT SUMMARY S/P LEFT HIP REPAIR. PT HAS RESTED MOST OF THE NIGHT. ONLY SET OFF BED ALARM ONCE. PT AMBULATING WELL THIS SHIFT [place] [facility] [place] 2 [place]. PT VOIDING. TOLERATING PO INTAKE. PAIN MANAGED WITH MEDS PER EMAR. PT A/O TO SELF/FAMILY, BUT ABLE TO EXPRESS SOME NEEDS. VITALS STABLE. MOIST WET COUGH, 3L O2 IN PLACE, SATS WNL. PLAN OF CARE REMAINS UNCHANGED. BED IN LOWEST POSITION, CALL LIGHT WITHIN REACH.
[2024-12-19 06:18] LABS: Bun/Creatinine Ratio 31.4 (12.0-20.0); Calcium, Blood 8.3 mg/dL (8.5-10.1); Creatinine, Blood 0.86 mg/dL (0.40-1.00); Potassium, Blood 3.9 mmol/L (3.5-5.5)
--- NOTE | 2024-12-19 11:25 | NUR ---
WHEEZES HEARD IN BILATERAL UPPER LUNG LOBES THIS AM DURING ASSESSMENT, RT CALLED FOR BREATHING TREATMENT. PT REPORTING SOB SHORTLY AFTER BREATHING TX, RESPIRATIONS 20-26, PT IS CONFUSED AND UNABLE TO GIVE DETAILS BUT STATES SHE "DOES NOT FEEL GOOD". LUNG SOUNDS CLEAR IN UPPER LOBES AND DIMINISHED IN LOWER AFTER TX. PURSED LIP BREATHING NOTED. O2 SATS 100% ON 3L NC, PT ENCOURAGED TO DB&C AND IS USING INCENTIVE SPIROMETER. DR. COLE NOTIFIED, CHEST XR ORDER RECIEVED.
[2024-12-19] MEDS ORDERED: Furosemide 10 MG / ML 2ML Vial IV ONE (12:10)
--- NOTE | 2024-12-19 16:40 | NUR ---
SHIFT SUMMARY PT IS POD2 FOR L HIP PINNING. PT IS ORIENTED TO SELF ONLY, UNABLE TO FOLLOW MOST COMMANDS. PT IS A 2 MAX ASST W/ FWW AND GB. DRESSINGS TO L HIP C/D/I, CAP REFILL 2 SECS IN L TOES. PT DENIES N/T TO BLE. MEDICATED FOR PAIN W/ TYLENOL. PT'S BREATHING HAS IMPROVED SINCE LAST NOTE, PT IS LESS SOB. LASIX GIVEN PER EMAR, PT IS VOIDING AND LUNG SOUNDS ARE CLEAR/DIMISHED. SON AT BEDSIDE. CALL LIGHT IN REACH.
--- NOTE | 2024-12-20 03:52 | NUR ---
SHIFT SUMMARY POD 3 S/P LEFT HIP NAILING. NO ACUTE CHANGES T/O SHIFT. PAIN MANAGED PER EMAR, ICE THERPAY AND REPOSITIONING. POOR PO INTAKE, ENCOURAGED AND ASSISTED WITH SNACKS AND FLUIDS. IV TO RIGHT A/C AND WRIST PATENT/SL. INCONTINENT OF VOIDS TONIGHT, ATTENDS CHANGED PRN. 1-2 ASSIST WITH REPOSITIONING. BED ALARM ON FOR SAFETY. PLAN TO WORK WITH THERAPY TODAY. WILL GIVE REPORT TO ONCOMING RN.
[2024-12-20 04:26] VITALS: BP 134/86
[2024-12-20 06:58] VITALS: BP 119/59
--- NOTE | 2024-12-20 17:01 | NUR ---
End of shift Pt resting quietly. Remains pleasantly confused. L hip dressing CDIx-2 Denies complaints. Awaiting dinner tray.
[2024-12-20 17:17] VITALS: BP 131/76
[2024-12-20 19:07] VITALS: BP 107/69
[2024-12-20] MEDS ORDERED: Docusate Sodium Liquid 100 MG UDC PO SCH (21:00)
[2024-12-21 04:26] VITALS: BP 117/66
--- NOTE | 2024-12-21 05:22 | NUR ---
SHIFT SUMMARY NOC PT A/O TO SELF. PLEASANTLY CONFUSED, BUT COOPERATIVE WITH CARE WITH CUEING. VSS. POST OP DAY 4 L HIP FX REPAIR. AQUACEL X [address] C/D/I. PAIN BEING MANAGED PER EMAR. PT ON 1.5L/NC SPO2 >95%. PT ENCOURAGED TO DEEP BREATH AND COUGH AND IS ABLE TO FOLLOW DIRECTIONS WITH CUES. PT CURRENTLY RESTING WITH BED ALARM ON, BED IN LOWEST POSITION, AND CALL LIGHT WITHIN REACH.
[2024-12-21 07:35] VITALS: BP 123/65
[2024-12-21 09:01] LABS: Source, Urine Straight Cath
[2024-12-21 09:25] LABS: Appearance, Urine Clear (Clear); Bilirubin, Urine Neg (Neg); Blood, Urine Neg (Neg); Color, Urine Yellow (P-Yellow); Glucose Qualitative, Urine Neg (Neg); Ketones, Urine Neg (Neg); Leukocyte Esterase, Urine Neg (Neg); Nitrite, Urine Neg (Neg); Protein, Urine Neg (Neg); Specific Gravity, Urine 1.015 (1.003-1.022); Urobilinogen, Urine NORM (Normal)
[2024-12-21 11:29] LABS: BASOPHILS ABSOLUTE AUTO 0.04 K/mm3 (0.00-0.23); BASOPHILS PERCENT AUTO 1 % (0-2); EOSINOPHILS ABSOLUTE AUTO 0.42 K/mm3 (0.00-0.68); EOSINOPHILS PERCENT AUTO 5 % (0-6); Hematocrit 26.3 % (33.0-51.0); Hemoglobin 8.5 g/dL (11.5-16.0); IMMATURE GRAN ABSOLUTE AUTO 0.03 K/mm3 (0.00-0.10); IMMATURE GRAN PERCENT AUTO 0 % (0-1); LYMPHOCYTES ABSOLUTE AUTO 0.98 K/mm3 (0.84-5.20); LYMPHOCYTES PERCENT AUTO 12 % (21-46); MONOCYTES ABSOLUTE AUTO 0.65 K/mm3 (0.16-1.47); MONOCYTES PERCENT AUTO 8 % (4-13); Mean Corpuscular HGB Conc 32.3 g/dL (31.5-36.5); Mean Corpuscular Volume 96 fL (80-100); Mean Platelet Volume 11.8 fL (9.1-12.4); NEUTROPHILS PERCENT AUTO 74 % (41-73); Platelet Count 208 K/mm3 (150-400); RDW Coefficient Variation 13.8 % (11.7-14.2); RDW Standard Deviation 47.9 fL (35.1-46.3); Red Blood Cell Count 2.74 M/mm3 (3.80-5.20); White Blood Cell Count 8.12 K/mm3 (4.00-11.30)
[2024-12-21 11:35] LABS: Albumin, Blood 2.7 g/dL (3.4-5.0); Albumin/Globulin Ratio 0.8 (0.8-1.8); Bilirubin, Total 0.7 mg/dL (0.1-1.0); Bun/Creatinine Ratio 33.2 (12.0-20.0); Calcium, Blood 8.9 mg/dL (8.5-10.1); Creatinine, Blood 0.69 mg/dL (0.40-1.00); Globulin, Blood 3.4 g/dL (2.2-4.0); Potassium, Blood 3.6 mmol/L (3.5-5.5); Total Protein, Blood 6.1 g/dL (6.4-8.2)
[2024-12-21 15:19] VITALS: BP 101/64
--- NOTE | 2024-12-21 15:30 | NUR ---
End of shift. Pt currently up to chair. Denies pain. Drinking own fluids. VSS Spo2 stable on 2lnc o2. tolerating chair well. Pt remains a feed assist for meals. L hip aquacell dressing x-2. Mild shadowing to upper dressing.
--- NOTE | 2024-12-21 16:03 | NUR ---
Report given to Patt/RN Medical floor. Plan for transfer to room 303 via [facility].
[2024-12-21 19:18] VITALS: BP 125/61
--- NOTE | 2024-12-21 19:25 | NUR ---
PATIENT ARRIVED TO UNIT AT 1525 IN NO APPARENT DISTRESS. LUNGS WHEEZY WITH COUGHING. RT NOTIFIED. SON AT BEDSIDE. SHE IS ABLE TO STATE HER FIRST NAME ONLY. BED IN LOW POSITION, CALL LIGHT IN REACH. BED ALARM ON.
[2024-12-22 04:34] LABS: BASOPHILS ABSOLUTE AUTO 0.05 K/mm3 (0.00-0.23); BASOPHILS PERCENT AUTO 1 % (0-2); EOSINOPHILS ABSOLUTE AUTO 0.48 K/mm3 (0.00-0.68); EOSINOPHILS PERCENT AUTO 6 % (0-6); Hematocrit 26.6 % (33.0-51.0); Hemoglobin 8.7 g/dL (11.5-16.0); IMMATURE GRAN ABSOLUTE AUTO 0.02 K/mm3 (0.00-0.10); IMMATURE GRAN PERCENT AUTO 0 % (0-1); LYMPHOCYTES ABSOLUTE AUTO 1.02 K/mm3 (0.84-5.20); LYMPHOCYTES PERCENT AUTO 14 % (21-46); MONOCYTES ABSOLUTE AUTO 0.64 K/mm3 (0.16-1.47); MONOCYTES PERCENT AUTO 9 % (4-13); Mean Corpuscular HGB 30.9 pg (26.0-34.0); Mean Corpuscular HGB Conc 32.7 g/dL (31.5-36.5); Mean Corpuscular Volume 94 fL (80-100); Mean Platelet Volume 11.3 fL (9.1-12.4); NEUTROPHILS ABSOLUTE AUTO 5.35 K/mm3 (1.96-9.15); NEUTROPHILS PERCENT AUTO 71 % (41-73); Platelet Count 205 K/mm3 (150-400); RDW Coefficient Variation 13.5 % (11.7-14.2); RDW Standard Deviation 46.4 fL (35.1-46.3); Red Blood Cell Count 2.82 M/mm3 (3.80-5.20); White Blood Cell Count 7.56 K/mm3 (4.00-11.30)
[2024-12-22 04:59] LABS: Bun/Creatinine Ratio 33.1 (12.0-20.0); Calcium, Blood 9.1 mg/dL (8.5-10.1); Creatinine, Blood 0.73 mg/dL (0.40-1.00); Potassium, Blood 3.9 mmol/L (3.5-5.5)
[2024-12-22 05:04] VITALS: BP 122/68
[2024-12-22 07:29] VITALS: BP 125/70
[2024-12-22 15:23] VITALS: BP 111/58
--- NOTE | 2024-12-22 17:39 | NUR ---
SHIFT SUMMARY PT AO TO SELF, DOES NOT CALL. DOES NOT FOLLOW DIRECTIONS WELL. PLEASANT AND COOPERATIVE WITH CARE. UP TO THE CHAIR THIS SHIFT WITH 2P ASSIST. NO ACUTE COMPLAINTS. CURRENTLY ON 2L, TRIED RA BUT HAD TO RESUME OXYGEN USE. NEEDS ASSISTANCE WITH FEEDING. RESPOSITIONED THROUGHOUT THE SHIFT. CALL LIGHT WITHIN REACH, BED LOCKED AND IN THE LOWEST POSITION. WILL REPORT TO ONCOMING NURSE.
[2024-12-22 20:22] VITALS: BP 129/70
[2024-12-22] MEDS ORDERED: QUEtiapine Fumarate 25 MG Tab PO SCH (21:00)
--- NOTE | 2024-12-23 03:53 | NUR ---
SHIFT SUMMARY 79 YR F ADMITTED ON 12/16/24. FULL CODE. NO ACUTE CHANGES THIS SHIFT. PT TOOK MEDS WELL W/ APPLESAUCE. SHE IS CONFUSED AND ORIENTED TO SELF ONLY, BUT IS ABLE TO FOLLOW ONLY THE SIMPLEST OF INSTRUCTIONS. AFTER 2100 MEDS PT FELL ASLEEP AND SLEPT FOR MOST OF THE NIGHT. SHE ATTEMPTED TO GET UP ONCE AND WAS ASSISTED TO THE BSC. SHE WAS MEDICATED ONCE FOR PAIN PER THE FACE SCALE. BED IN LOW POSITION W/ ALARM ON AND CALL LIGHT IN REACH.
[2024-12-23 04:23] VITALS: BP 116/53
[2024-12-23 04:45] LABS: BASOPHILS ABSOLUTE AUTO 0.05 K/mm3 (0.00-0.23); BASOPHILS PERCENT AUTO 1 % (0-2); EOSINOPHILS ABSOLUTE AUTO 0.39 K/mm3 (0.00-0.68); EOSINOPHILS PERCENT AUTO 6 % (0-6); Hematocrit 23.7 % (33.0-51.0); Hemoglobin 7.7 g/dL (11.5-16.0); IMMATURE GRAN ABSOLUTE AUTO 0.03 K/mm3 (0.00-0.10); IMMATURE GRAN PERCENT AUTO 1 % (0-1); LYMPHOCYTES ABSOLUTE AUTO 1.07 K/mm3 (0.84-5.20); LYMPHOCYTES PERCENT AUTO 17 % (21-46); MONOCYTES ABSOLUTE AUTO 0.54 K/mm3 (0.16-1.47); MONOCYTES PERCENT AUTO 9 % (4-13); Mean Corpuscular HGB 30.8 pg (26.0-34.0); Mean Corpuscular HGB Conc 32.5 g/dL (31.5-36.5); Mean Corpuscular Volume 95 fL (80-100); Mean Platelet Volume 11.3 fL (9.1-12.4); NEUTROPHILS ABSOLUTE AUTO 4.17 K/mm3 (1.96-9.15); NEUTROPHILS PERCENT AUTO 67 % (41-73); Platelet Count 193 K/mm3 (150-400); RDW Coefficient Variation 13.5 % (11.7-14.2); RDW Standard Deviation 46.9 fL (35.1-46.3); White Blood Cell Count 6.25 K/mm3 (4.00-11.30)
[2024-12-23 05:07] LABS: Bun/Creatinine Ratio 28.6 (12.0-20.0); Calcium, Blood 8.6 mg/dL (8.5-10.1); Creatinine, Blood 0.81 mg/dL (0.40-1.00); Potassium, Blood 3.8 mmol/L (3.5-5.5)
[2024-12-23 07:46] VITALS: BP 127/70
[2024-12-23 15:59] VITALS: BP 120/62
--- NOTE | 2024-12-23 16:38 | NUR ---
INITIAL PALLIATIVE CARE NOTE: ATTEMPTED TO VISIT WITH PATIENT IN ROOM. PT APPEARED TO BE SLEEPING, RR E/U. SPOKE TO PRIMARY RN AND SHE STATED PT IS VERY CONFUSED. CALLED HER SON YUE WHO IS LISTED IN CHART POA. UPDATED HIM ON HIS MOM'S CONDITION. YUE REPORTED HE WAS [facility] TODAY TO SEE IF HE CAN GET HER MOVED OVER TO THE [facility] S[facility]. PER THE [facility] THEY DO NOT HAVE ANY OPENING RIGHT NOW. YUE STATED HE IS AWARE HIS MOM MAY NOT BE A CANDIDATE FOR SNF IF SHE CANNOT FOLLOW DIRECTIONS. HE WAS PRESENT WHEN OT WORKED WITH PT TODAY. DISCUSSED POLST WITH YUE. PER YUE, HIS MOM DOES NOT HAVE ONE COMPLETED BUT HE WOULD LIKE TO COMPLETE. HE WANTS TO KEEP HIS MOM A FULL CODE. HE KNOWS THE RISKS ASSOCIATED WITH CPR. YUE WILL COME IN TOMORROW AROUND 3 PM TO DISCUSS POLST FURTHER.
--- NOTE | 2024-12-23 19:04 | NUR ---
SHIFT SUMMARY PT ALERT TO SELF. NO ACUTE EVENTS THIS SHIFT. PT'S MENTATION APPEAR TO BE IMPROVING THIS SHIFT. 2P ASSIST TO THE BSC. MEDICATED FOR PAIN PER THE EMAR. REPOSITIONED THROUGHOUT THE SHIFT. CALL LIGHT WITHIN REACH, BED LOCKED AND IN THE LOWEST POSITION. WILL REPORT TO ONCOMING NURSE.
[2024-12-23 19:20] VITALS: BP 104/54
[2024-12-24 03:35] VITALS: BP 124/62
--- NOTE | 2024-12-24 06:24 | NUR ---
SHIFT SUMMARY PT REMAINS ORIENTED TO SELF ONLY. FOLLOWS SOME COMMANDS, BUT PT UNABLE TO FOLLOW COMMANDS FOR SAFE AMBULATION. PT ASSISTED TO BSC WITH 2 MAX ASSIST AND GAITBELT. PT SLEPT LONG INTERVALS THROUGH THE NIGHT. WEANED SLOWLY FROM 2LNC AND PT ON RA SINCE 399, SATS > 95%. DRESSINGS REMAIN UNCHANGED TO LEFT HIP, TOP DRESSING WITH SHADOWING, DISTAL DRESSING C/D/I. MEDICATED FOR PAIN X1 PER FLACC SCALE- SEE EMAR. BED ALARM ON, BED IN LOWEST POSITION, CALL LIGHT WITHIN REACH, SIDERAILS UP X3.
[2024-12-24 07:21] LABS: BASOPHILS ABSOLUTE AUTO 0.05 K/mm3 (0.00-0.23); BASOPHILS PERCENT AUTO 1 % (0-2); EOSINOPHILS ABSOLUTE AUTO 0.42 K/mm3 (0.00-0.68); EOSINOPHILS PERCENT AUTO 7 % (0-6); Hematocrit 27.3 % (33.0-51.0); Hemoglobin 8.7 g/dL (11.5-16.0); IMMATURE GRAN ABSOLUTE AUTO 0.02 K/mm3 (0.00-0.10); IMMATURE GRAN PERCENT AUTO 0 % (0-1); LYMPHOCYTES ABSOLUTE AUTO 1.01 K/mm3 (0.84-5.20); LYMPHOCYTES PERCENT AUTO 16 % (21-46); MONOCYTES ABSOLUTE AUTO 0.55 K/mm3 (0.16-1.47); MONOCYTES PERCENT AUTO 9 % (4-13); Mean Corpuscular HGB 30.5 pg (26.0-34.0); Mean Corpuscular HGB Conc 31.9 g/dL (31.5-36.5); Mean Corpuscular Volume 96 fL (80-100); Mean Platelet Volume 11.2 fL (9.1-12.4); NEUTROPHILS ABSOLUTE AUTO 4.31 K/mm3 (1.96-9.15); NEUTROPHILS PERCENT AUTO 68 % (41-73); Platelet Count 232 K/mm3 (150-400); RDW Coefficient Variation 13.4 % (11.7-14.2); RDW Standard Deviation 47.1 fL (35.1-46.3); Red Blood Cell Count 2.85 M/mm3 (3.80-5.20); White Blood Cell Count 6.36 K/mm3 (4.00-11.30)
[2024-12-24 07:41] VITALS: BP 122/63
[2024-12-24 08:08] LABS: Bun/Creatinine Ratio 31.1 (12.0-20.0); Creatinine, Blood 0.8 mg/dL (0.40-1.00); Potassium, Blood 3.9 mmol/L (3.5-5.5)
[2024-12-24] MEDS ORDERED: TRAM50 PO (11:58)
[2024-12-24] MEDS ORDERED: ACET325 PO (11:58)
--- NOTE | 2024-12-24 13:04 | NUR ---
DISCHARGE NOTE PATIENT ALERT AND ORIENTED TO SELF. OXYGEN REMOVED LAST NIGHT, CONTINUOUS PULSE OX INPLACE. SPO2 WNL ON ROOM AIR AT REST. REPORT CALLED TO [facility], NURSE LELIA. IV REMOVED PRIOR TO DISCHARGE. PATIENT ADMINISTERED BOWEL MEDS THIS AM, NO BM SINCE 12/22. HARD SCRIPT OF TRAMADOL IN PATIENT'S FOLDER FOR FACILITY. INCISION TO LEFT HIP WNL, AQUACEL IN PLACE. NO OTHER CONCERNS AT THIS TIME. PATIENT ASSISTED TO WHEELCHAIR TRASNPORTATION WITH ALL BELONGINGS IN HAND.
== END 2024-12-24 13:10 | DRG 480 ==
LOC: ER 23:54 → MEDS 23:55 → ERHOLD 23:55 → MEDS 12-16 07:23 → SURS 12-16 13:21 → MEDS 12-16 13:21 → SURS 12-17 10:30 → MEDS 12-21 14:12 → SURS 12-21 14:14 → MEDS 12-21 16:26 → ENPENDDIS 12-24 10:28 → MEDS 12-24 13:10
PROVIDERS: Family Medicine; Internal Medicine; Orthopaedic Surgery; Student in an Organized Health Care Education/Training Program; ADMIT Student in an Organized Health Care Education/Training Program
PROC: 0QS736Z Reposition Left Upper Femur with Intramedullary Internal Fixation Device, Percutaneous Approach (ICD-10-PCS; principal; 2024-12-17 10:15)
DX: S72.142A Displaced intertrochanteric fracture of left femur, initial encounter for closed fracture (principal); G93.41 Metabolic encephalopathy; J96.01 Acute respiratory failure with hypoxia; I13.0 Hypertensive heart and chronic kidney disease with heart failure and stage 1 through stage 4 chronic kidney disease, or unspecified chronic kidney disease; I50.9 Heart failure, unspecified; Z88.8 Allergy status to other drugs, medicaments and biological substances; F03.90 Unspecified dementia, unspecified severity, without behavioral disturbance, psychotic disturbance, mood disturbance, and anxiety; N18.30 Chronic kidney disease, stage 3 unspecified; Z79.811 Long term (current) use of aromatase inhibitors; Z79.82 Long term (current) use of aspirin; Z87.19 Personal history of other diseases of the digestive system; Z79.899 Other long term (current) drug therapy; Z85.118 Personal history of other malignant neoplasm of bronchus and lung; Z86.79 Personal history of other diseases of the circulatory system; Z90.710 Acquired absence of both cervix and uterus; Z98.890 Other specified postprocedural states; Z87.891 Personal history of nicotine dependence; W18.39XA Other fall on same level, initial encounter
CPT/HCPCS: 36415; 70450; 71045; 73502; 80048; 80053; 81003; 82947; 83735; 83880; 85025; 85610; 85730; 93306; 94640; 94664; 94760; 94762; 96374; 96375; 96376; 97110; 97112; 97161; 97165; 97530; 97535; 99285-25; A9270; C1713; G0378; J0690; J1100; J1650; J1885; J1940; J2405; J2704; J3010; J7120

== ENCOUNTER 2025-07-21 20:58 | Emergency (ER) | payer MEDICARE ==
[~2025-07-21] VITALS: Ht 134.6 cm; Wt 40.8 kg
[~2025-07-21 20:58] MED LIST changes: +ACET325 PO; +ALEN70 PO; +ASPI81CH PO; +CEFP200 PO; +CENTRUM SILVER1 EAC2 PO; +FISH OIL 1,0001 EA10 PO; +FLUT1DIS5 INH; +IBUP600 PO; +Lovastatin20 MG PO; +MEMA10 PO; +MOTRIN IB200 MG PO; +TRAM50 PO
[2025-07-21 21:08] VITALS: BP 137/73
[2025-07-21 21:39] LABS: BASOPHILS ABSOLUTE AUTO 0.05 K/mm3 (0.00-0.23); BASOPHILS PERCENT AUTO 1 % (0-2); EOSINOPHILS ABSOLUTE AUTO 0.22 K/mm3 (0.00-0.68); EOSINOPHILS PERCENT AUTO 4 % (0-6); Hematocrit 39.9 % (33.0-51.0); Hemoglobin 12.8 g/dL (11.5-16.0); IMMATURE GRAN ABSOLUTE AUTO 0.03 K/mm3 (0.00-0.10); IMMATURE GRAN PERCENT AUTO 1 % (0-1); LYMPHOCYTES ABSOLUTE AUTO 1.42 K/mm3 (0.84-5.20); LYMPHOCYTES PERCENT AUTO 23 % (21-46); MONOCYTES ABSOLUTE AUTO 0.41 K/mm3 (0.16-1.47); MONOCYTES PERCENT AUTO 7 % (4-13); Mean Corpuscular HGB Conc 32.1 g/dL (31.5-36.5); Mean Corpuscular Volume 90 fL (80-100); NEUTROPHILS ABSOLUTE AUTO 4.00 K/mm3 (1.96-9.15); NEUTROPHILS PERCENT AUTO 65 % (41-73); NRBC ABSOLUTE 0.00 K/mm3 (0.00-0.02); NRBC Auto 0.0 /100 WBC (0.0-0.2); Platelet Count 208 K/mm3 (150-400); RDW Coefficient Variation 15.1 % (11.7-14.2); RDW Standard Deviation 49.7 fL (35.1-46.3)
[2025-07-21 22:01] LABS: Alanine Aminotransfer (ALT/SGP 18.0 U/L (12-78); Albumin, Blood 3.3 g/dL (3.4-5.0); Albumin/Globulin Ratio 1.0 (0.8-1.8); Anion Gap 7.0 mmol/L (3-11); Aspartate Aminotrans (AST/SGOT 17.0 U/L (12-37); Bilirubin, Total 0.2 mg/dL (0.1-1.0); Blood Urea Nitrogen 23.0 mg/dL (8-24); CO2, Blood 27.0 mmol/L (21-32); Calcium, Blood 9.7 mg/dL (8.5-10.1); Chloride, Blood 111.0 mmol/L (98-108); Creatinine, Blood 0.76 mg/dL (0.40-1.00); Globulin, Blood 3.3 g/dL (2.2-4.0); Glucose, Blood 147.0 mg/dL (70-99); Potassium, Blood 3.6 mmol/L (3.5-5.5); Sodium, Blood 141.0 mmol/L (136-145); Total Protein, Blood 6.6 g/dL (6.4-8.2)
== END 2025-07-22 01:38 | disposition home or self-care (01) ==
LOC: ER 20:58
PROVIDERS: Emergency Medicine
DX: R07.9 Chest pain, unspecified (principal); I13.0 Hypertensive heart and chronic kidney disease with heart failure and stage 1 through stage 4 chronic kidney disease, or unspecified chronic kidney disease; J44.9 Chronic obstructive pulmonary disease, unspecified; N18.9 Chronic kidney disease, unspecified; Z88.8 Allergy status to other drugs, medicaments and biological substances; Z79.82 Long term (current) use of aspirin; Z79.899 Other long term (current) drug therapy
CPT/HCPCS: 71045; 80053; 83690; 84484; 85025; 99285-25

== ENCOUNTER 2025-07-24 06:37 | Emergency (ER) | payer MEDICARE ==
[~2025-07-24] VITALS: Ht 165.1 cm; Wt 63.5 kg
[2025-07-24 08:25] LABS: BASOPHILS ABSOLUTE AUTO 0.06 K/mm3 (0.00-0.23); BASOPHILS PERCENT AUTO 1 % (0-2); EOSINOPHILS ABSOLUTE AUTO 0.16 K/mm3 (0.00-0.68); EOSINOPHILS PERCENT AUTO 3 % (0-6); Hematocrit 41.4 % (33.0-51.0); Hemoglobin 13.3 g/dL (11.5-16.0); IMMATURE GRAN ABSOLUTE AUTO 0.01 K/mm3 (0.00-0.10); IMMATURE GRAN PERCENT AUTO 0 % (0-1); LYMPHOCYTES ABSOLUTE AUTO 0.88 K/mm3 (0.84-5.20); LYMPHOCYTES PERCENT AUTO 15 % (21-46); MONOCYTES ABSOLUTE AUTO 0.42 K/mm3 (0.16-1.47); MONOCYTES PERCENT AUTO 7 % (4-13); Mean Corpuscular HGB Conc 32.1 g/dL (31.5-36.5); Mean Corpuscular Volume 93 fL (80-100); NEUTROPHILS ABSOLUTE AUTO 4.54 K/mm3 (1.96-9.15); NEUTROPHILS PERCENT AUTO 75 % (41-73); NRBC ABSOLUTE 0.00 K/mm3 (0.00-0.02); NRBC Auto 0.0 /100 WBC (0.0-0.2); Platelet Count 196 K/mm3 (150-400); RDW Coefficient Variation 15.3 % (11.7-14.2); RDW Standard Deviation 52.4 fL (35.1-46.3)
[2025-07-24 08:44] LABS: Alanine Aminotransfer (ALT/SGP 16.0 U/L (12-78); Albumin, Blood 3.5 g/dL (3.4-5.0); Albumin/Globulin Ratio 1.0 (0.8-1.8); Anion Gap 8.0 mmol/L (3-11); Aspartate Aminotrans (AST/SGOT 16.0 U/L (12-37); Bilirubin, Total 0.8 mg/dL (0.1-1.0); Blood Urea Nitrogen 17.0 mg/dL (8-24); CO2, Blood 28.0 mmol/L (21-32); Calcium, Blood 10.0 mg/dL (8.5-10.1); Chloride, Blood 109.0 mmol/L (98-108); Creatinine, Blood 0.85 mg/dL (0.40-1.00); Globulin, Blood 3.4 g/dL (2.2-4.0); Glucose, Blood 94.0 mg/dL (70-99); Potassium, Blood 4.0 mmol/L (3.5-5.5); Sodium, Blood 141.0 mmol/L (136-145); Total Protein, Blood 6.9 g/dL (6.4-8.2)
[2025-07-24 09:08] LABS: Source, Urine Straight Cath
[2025-07-24 09:12] LABS: Bilirubin, Urine Neg (Neg); Color, Urine Amber (P-Yellow); Glucose Qualitative, Urine Neg (Neg); Ketones, Urine 1+ (Neg); Leukocyte Esterase, Urine 1+ (Neg); Protein, Urine 2+ (Neg); Specific Gravity, Urine 1.025 (1.003-1.022); Urobilinogen, Urine NORM (Normal)
[2025-07-24] MEDS ORDERED: FLUT1DIS5 INH (09:31)
[2025-07-24] MEDS ORDERED: ANTACID (09:31)
[2025-07-24] MEDS ORDERED: Cyclobenzaprine5 MG PO (09:31)
[2025-07-24] MEDS ORDERED: LIDO700A20 TOP (09:31)
[2025-07-24] MEDS ORDERED: QUET25 PO (09:32)
[2025-07-24] MEDS ORDERED: MIRALAX17 GM PO (09:32)
[2025-07-24] MEDS ORDERED: LOPE2C PO (09:32)
[2025-07-24] MEDS ORDERED: [UNRECOGNIZED DRUG - SUPPLY] (09:33)
[2025-07-24] MEDS ORDERED: SENNA LAXATIVE8.6 MG PO (09:33)
[2025-07-24 10:41] VITALS: BP 114/80
== END 2025-07-24 10:42 | disposition home or self-care (01) ==
LOC: ER 06:37
PROVIDERS: Student in an Organized Health Care Education/Training Program
DX: R07.9 Chest pain, unspecified (principal); I13.0 Hypertensive heart and chronic kidney disease with heart failure and stage 1 through stage 4 chronic kidney disease, or unspecified chronic kidney disease; I50.9 Heart failure, unspecified; N18.9 Chronic kidney disease, unspecified; J44.9 Chronic obstructive pulmonary disease, unspecified; Z87.891 Personal history of nicotine dependence; Z79.51 Long term (current) use of inhaled steroids; Z79.82 Long term (current) use of aspirin; Z79.899 Other long term (current) drug therapy; Z88.8 Allergy status to other drugs, medicaments and biological substances
CPT/HCPCS: 51701; 71045; 80053; 81001; 83690; 84484; 85025; 87077; 87086; 87186; 93005; 93010; 93971; 99285-25

== ENCOUNTER 2025-08-06 03:52 | Emergency (ER) | payer MEDICARE ==
[~2025-08-06] VITALS: Ht 149.9 cm; Wt 45.4 kg
[~2025-08-06 03:52] MED LIST changes: +ANTACID; +Cyclobenzaprine5 MG PO; +LIDO700A20 TOP; +LOPE2C PO; +MIRALAX17 GM PO; +QUET25 PO; +SENNA LAXATIVE8.6 MG PO; +[UNRECOGNIZED DRUG - SUPPLY]
[2025-08-06 04:15] VITALS: BP 115/70
== END 2025-08-06 09:15 | disposition home or self-care (01) ==
LOC: ER 03:52
DX: M79.605 Pain in left leg (principal); M79.604 Pain in right leg; M40.204 Unspecified kyphosis, thoracic region; F03.90 Unspecified dementia, unspecified severity, without behavioral disturbance, psychotic disturbance, mood disturbance, and anxiety; I12.9 Hypertensive chronic kidney disease with stage 1 through stage 4 chronic kidney disease, or unspecified chronic kidney disease; I50.9 Heart failure, unspecified; N18.9 Chronic kidney disease, unspecified; J44.9 Chronic obstructive pulmonary disease, unspecified; Z79.82 Long term (current) use of aspirin; Z79.899 Other long term (current) drug therapy; Z87.891 Personal history of nicotine dependence
CPT/HCPCS: 70450; 72125; 99284-25